=== PATIENT | female | born 1940 | race Caucasian/White ===

== ENCOUNTER 2016-12-10 05:53 | Inpatient (IN) | payer OTHER, BC ==
[2016-12-10] MEDS ORDERED: TRANEXAMIC ACID 1000 MG/10 ML VIAL IVPUSH ONE (06:34)
[2016-12-10] MEDS ORDERED: CEFAZOLIN 1 GM/D5W 50 ML IVPB ONE (06:34)
[2016-12-10] MEDS ORDERED: ROPIVICAINE 0.2%/MORPH PF/KETOROLAC - 51ML DISP.SYRINGE IA ONE (06:34)
[2016-12-10] MEDS: oxyCODONE HCL 10 MG SUSTAINED ACTING TABLET PO ONE ×2 (06:55→16:06)
[2016-12-10] MEDS: CELECOXIB 200 MG CAPSULE PO ONE ×2 (06:55→16:03)
[2016-12-10] MEDS: PANTOPRAZOLE 40 MG TABLET (FP) PO ONE ×2 (06:55→16:07)
[2016-12-10] MEDS: GABAPENTIN 300 MG CAPSULE (FP) PO ONE ×2 (06:55→16:06)
[2016-12-10] MEDS ORDERED: ePHEDrine SULFATE 50 MG/1 ML AMPULE ONE (07:00)
[2016-12-10] MEDS ORDERED: PROPOFOL 20 ML ONE ×5 (07:01)
[2016-12-10] MEDS ORDERED: SUCCINYLCHOLINE CHLORIDE 200 MG/10 ML VIAL ONE (07:01)
[2016-12-10] MEDS ORDERED: MIDAZOLAM HCL 2 MG/2 ML SINGLE DOSE VIAL ONE ×2 (07:01→07:41)
[2016-12-10] MEDS ORDERED: LIDOCAINE 1% P/F 10 MG/ML VIAL ONE (07:41)
[2016-12-10] MEDS ORDERED: DEXAMETHASONE SOD PHOSPHATE/PF 10 MG/ML SDV ONE (07:41)
[2016-12-10] MEDS ORDERED: BUPIVACAINE HCL/PF (5 MG/ML) 30 ML VIAL IJ ONE (07:42)
[2016-12-10] MEDS ORDERED: BUPIVACAINE HCL/PF 0.5% (5MG/ML) 10 ML VIAL ONE (08:27)
[2016-12-10] MEDS ORDERED: ONDANSETRON 4 MG/2 ML VIAL IVPB PRN (12:58)
[2016-12-10] MEDS ORDERED: MAG HYDROX/AL HYDROX/SIMETH 30 ML UNIT-DOSE CUP PO PRN (12:58)
[2016-12-10] MEDS ORDERED: MAGNESIUM HYDROX 2400MG/30ML ORAL SUSPENSION 30 ML CUP PO PRN (12:58)
--- NOTE | 2016-12-10 12:58 | SURG ---
Surgery Bank Worker Note Bank Worker: Priyanka Gambino PA-C Date of Service: 12/10/16 Diagnosis: left hip arthritis Procedure: Left total hip arthroplasty Diego zhu I was present for the entirety of the operative procedure. For further detail, please refer to operative report. Visit type - Case Type Case Type: Scheduled Admission - Emergency Emergency Visit: No - New patient This patient is new to me today: Yes Date on this admission: 12/10/16
[2016-12-10] MEDS ORDERED: ONDANSETRON 4 MG/2 ML VIAL IVPUSH PRN (12:59)
[2016-12-10] MEDS ORDERED: LACTATED RINGERS SOLUTION 1,000 ML IV SCH ×2 (13:00)
[2016-12-10] MEDS ORDERED: oxyCODONE HCL 5 MG TABLET PO PRN (13:00)
--- NOTE | 2016-12-10 13:01 | OP ---
Operative Note - Note: Operative Date: 12/10/16 Pre-Operative Diagnosis: left hip OA Operation: left OTTONIEL Post-Operative Diagnosis: Same as Pre-op Surgeon: Brad Benoit Naval Engineer: Priyanka Gambino Anesthesia: Spinal Estimated Blood Loss (mls): 300
[2016-12-10] MEDS: traMADol HCL 50 MG TABLET PO SCH ×3 (13:30→20:07)
[2016-12-10] MEDS: ACETAMINOPHEN 1000 MG/100 ML VIAL (NON FORMULARY) IVPB ONE ×2 (13:30→16:09)
[2016-12-10] MEDS: KETOROLAC TROMETHAMINE 30 MG/1 ML VIAL IVPUSH SCH ×3 (13:30→20:09)
[2016-12-10 14:09] VITALS: BMI 24.9
[2016-12-10] MEDS ORDERED: ACETAMINOPHEN 325 MG TABLET (FP) PO SCH (17:15)
[2016-12-10] MEDS: CEFAZOLIN 1 GM/D5W 50 ML IVPB SCH (18:27)
[2016-12-10] MEDS ORDERED: DEXAMETHASONE SOD PHOSPHATE 10 MG/1 ML VIAL IVPB ONE (20:00)
[2016-12-10] MEDS: ACETAMINOPHEN 325 MG TABLET (FP) PO SCH (20:08)
[2016-12-10] MEDS: SENNOSIDES/DOCUSATE COMBO (SENNA PLUS) TABLET (UD) PO SCH (21:21)
[2016-12-10] MEDS: ASCORBIC ACID 500 MG TABLET (FP) PO SCH (21:21)
[2016-12-10] MEDS: oxyCODONE HCL 10 MG SUSTAINED ACTING TABLET PO SCH (21:22)
[2016-12-10] MEDS: CELECOXIB 200 MG CAPSULE PO SCH (21:22)
[2016-12-10] MEDS: GABAPENTIN 300 MG CAPSULE (FP) PO SCH (21:22)
[2016-12-11] MEDS: CEFAZOLIN 1 GM/D5W 50 ML IVPB SCH (01:18)
[2016-12-11] MEDS: traMADol HCL 50 MG TABLET PO SCH ×4 (01:56→20:00)
[2016-12-11] MEDS: KETOROLAC TROMETHAMINE 30 MG/1 ML VIAL IVPUSH SCH ×2 (01:56→08:09)
[2016-12-11] MEDS: ACETAMINOPHEN 325 MG TABLET (FP) PO SCH ×4 (01:57→20:00)
[2016-12-11] MEDS: LEVOTHYROXINE NA 75 MCG TABLET (FP) PO SCH (06:41)
[2016-12-11 07:44] LABS: MCH 31.3 pg (25.7-33.7); MCHC 34.1 g/dl (32.0-36.0); MEAN CELL VOLUME 91.8 fl (80-96); MEAN PLT VOLUME 9.3 fl (7.5-11.1); PLATELET COUNT 172 K/MM3 (134-434); RDW 12.4 % (11.6-15.6)
[2016-12-11 07:59] LABS: ANION GAP 7 (8-16); CALCIUM 8.2 mg/dl (8.4-10.2); CO2 24 mmol/L (22-28); CREATININE 0.7 mg/dl (0.6-1.3); GLUCOSE,RANDOM 161 mg/dl (74-106)
[2016-12-11] MEDS: ASPIRIN 325 MG TABLET PO SCH (08:09)
[2016-12-11] MEDS: oxyCODONE HCL 5 MG TABLET PO PRN ×2 (09:16→14:05)
[2016-12-11] MEDS: EXEMESTANE 25 MG TABLET PO SCH (09:41)
[2016-12-11] MEDS: GABAPENTIN 300 MG CAPSULE (FP) PO SCH ×2 (09:42→21:34)
[2016-12-11] MEDS: CELECOXIB 200 MG CAPSULE PO SCH ×2 (09:42→21:34)
[2016-12-11] MEDS: oxyCODONE HCL 10 MG SUSTAINED ACTING TABLET PO SCH ×2 (09:43→21:34)
[2016-12-11] MEDS: ASCORBIC ACID 500 MG TABLET (FP) PO SCH ×2 (09:43→21:34)
[2016-12-11] MEDS: SENNOSIDES/DOCUSATE COMBO (SENNA PLUS) TABLET (UD) PO SCH ×2 (09:43→21:34)
[2016-12-11] MEDS: PANTOPRAZOLE 40 MG TABLET (FP) PO SCH (09:43)
[2016-12-11] MEDS ORDERED: EXEMESTANE 25 MG PO SCH (10:00)
[2016-12-11] MEDS: MULTIVITAMINS (DAILY MVI) TABLET (FP) PO SCH (10:05)
--- NOTE | 2016-12-11 18:07 | PN ---
Progress Note (short form) - Note Progress Note: Pt seen and examined. Doing well. AVSS Selected Entries 12/10/16 12/11/16 22:00 05:59 Temperature 98.3 F Pulse Rate 64 Respiratory 18 Rate Blood Pressure 113/47 O2 Sat by Pulse 98 Oximetry (%) Oxygen Delivery Room Air Method Laboratory Tests 12/11/16 12/11/16 07:23 07:23 WBC 12.0 H Hgb 11.3 Hct 33.2 Plt Count 172 Sodium 132 L Potassium 3.9 Chloride 101 Carbon Dioxide 24 Anion Gap 7 L BUN 21 H Creatinine 0.7 Random Glucose 161 H Calcium 8.2 L Gen: NAD LLE: c/d/i, NVID A/P 76yo female POD#1 s/p L OTTONIEL 1. PT/OOB 2. Plan for d/c home tomorrow.
[2016-12-12] MEDS: traMADol HCL 50 MG TABLET PO SCH ×3 (01:59→13:46)
[2016-12-12] MEDS: ACETAMINOPHEN 325 MG TABLET (FP) PO SCH ×3 (02:00→13:46)
[2016-12-12] MEDS: LEVOTHYROXINE NA 75 MCG TABLET (FP) PO SCH (06:32)
[2016-12-12 08:31] LABS: MCH 31.4 pg (25.7-33.7); MEAN CELL VOLUME 92.2 fl (80-96); MEAN PLT VOLUME 9.4 fl (7.5-11.1); PLATELET COUNT 151 K/MM3 (134-434); RDW 12.4 % (11.6-15.6); WHITE BLOOD COUNT 11.2 K/mm3 (4.0-10.8)
[2016-12-12] MEDS: ASPIRIN 325 MG TABLET PO SCH (08:35)
[2016-12-12 09:02] LABS: ANION GAP 5 (8-16); CALCIUM 8.2 mg/dl (8.4-10.2); CO2 26 mmol/L (22-28); CREATININE 0.7 mg/dl (0.6-1.3); GLUCOSE,RANDOM 88 mg/dl (74-106)
[2016-12-12] MEDS ORDERED: PT OWN MED DRAWER 7, Y5N ONE (09:16)
[2016-12-12] MEDS: SENNOSIDES/DOCUSATE COMBO (SENNA PLUS) TABLET (UD) PO SCH (09:22)
[2016-12-12] MEDS: MULTIVITAMINS (DAILY MVI) TABLET (FP) PO SCH (09:22)
[2016-12-12] MEDS: ASCORBIC ACID 500 MG TABLET (FP) PO SCH (09:22)
[2016-12-12] MEDS: oxyCODONE HCL 10 MG SUSTAINED ACTING TABLET PO SCH (09:23)
[2016-12-12] MEDS: GABAPENTIN 300 MG CAPSULE (FP) PO SCH (09:23)
[2016-12-12] MEDS: CELECOXIB 200 MG CAPSULE PO SCH (09:23)
[2016-12-12] MEDS: PANTOPRAZOLE 40 MG TABLET (FP) PO SCH (09:24)
[2016-12-12] MEDS: EXEMESTANE 25 MG TABLET PO SCH (09:24)
[2016-12-12] MEDS ORDERED: ONDANSETRON *ODT* 4 MG TABLET SL PRN (10:48)
[2016-12-12 14:17] VITALS: BP 131/50; PULSE 72; TEMP 97.6
--- NOTE | 2016-12-18 10:36 | SPEC ---
DATE OF OPERATION: 12/10/2016 PREOPERATIVE DIAGNOSIS: Left hip osteoarthritis. POSTOPERATIVE DIAGNOSIS: Left hip osteoarthritis. PROCEDURE: Left total hip replacement with MAKOplasty robotic navigation. ATTENDING DOCTOR: Kandace Simon MD TACO MAKER: SANDOVAL Neal ANESTHESIA: Spinal plus sedation. ESTIMATED BLOOD LOSS: 300 mL. COMPLICATIONS: None. SPECIMENS: Resected bone was sent for pathological analysis. DISPOSITION: The patient was transferred to the PACU in stable condition. INDICATIONS: This is a 76-year-old female who presented to the office complaining of severe left hip pain. She was seen and examined by Dr. Simon and diagnosed with left hip osteoarthritis. She was initially treated nonoperatively with medications and physical therapy, but continued to have left hip pain and ambulatory dysfunction. She was subsequently indicated for left total hip replacement with MAKOplasty robotic navigation. The risks, benefits, and alternatives to the procedure were explained to the patient in great detail, and she elected to proceed with the surgery. DESCRIPTION OF PROCEDURE: On the day of surgery, the patient was taken to the operating room and placed on the OR table. Spinal anesthesia was administered by the anesthesiologist. The patient was then positioned in the lateral decubitus position on the table and all bony prominences were padded. An axillary roll was placed. The operative hip was then prepped and draped in the usual sterile fashion and intravenous antibiotics were given for infection prophylaxis. A surgical time-out was then performed with the team, and the patients identity, procedure, side, availability of implants, and the administration of antibiotics was confirmed. An approximately 15cm longitudinal incision was made through the skin centered on the greater trochanter of the hip. This dissection was carried down through the subcutaneous tissues to the deep fascia. This fascia was then incised and a cobra was placed around the inferior femoral neck. Electrocautery was used to reflect the anterior 40% of the gluteus medius and minimus starting at the musculotendinous junction and leaving a cuff for closure. This was reflected to reveal the capsule of the hip joint. An anterior capsulectomy was performed and the femoral head and neck was visualized. Grade 4 changes were noted diffusely throughout the joint. At this point, three small stab incisions were made superior to the main incision along the iliac crest. Three self-drilling Luke pins were then placed and the Diego pelvic array was attached. Reference points on the limb were then entered into the robotic device and the limb length deficiency, offset, and femoral neck resection level were then calculated by the software. The hip was then dislocated with traction and external rotation, an oscillating saw was used to make the femoral neck cut at the level previously templated, and the femoral head was removed. Attention was then turned to the acetabulum. Retractors were then placed around the acetabulum and the labrum was removed. An acetabular checkpoint pin and the [employer] software was used to register the contours of the acetabulum. The acetabulum was then reamed in a single stage to the preoperatively templated size using the [employer] robotic arm. The appropriately sized cup was then impacted and had solid fixation as well as the preset inclination and version of 40 and 20 degrees, respectively. A polyethylene liner was then placed in the cup. Attention was then turned back to the femur, which was externally rotated for improved visualization. A femoral neck elevator was used to present the femoral neck cut, a box osteotome was used to enter the femoral canal, and a canal finder was used to go down the femoral shaft. The Diego broaches were used sequentially until the optimal scratch fit was achieved. This correlated to the preoperatively templated size. From here, several different offset head and neck configurations were tested until excellent stability and length was obtained. These measurements were quantified using the [employer] software. All trial components were then removed, the femur was copiously irrigated, and the final components were placed. Leg length and stability were checked again and found to be excellent. Irrigation was performed again. Wound closure was started by repairing the abductor muscles with a No. 2 Fiberwire stitch in a Westerly configuration passed through bone tunnels in the greater trochanter and tied over a bony bridge. This repair was then reinforced with a 0 VLoc 180 barbed suture. Next, No. 1 Polysorb and 0 VLoc 180 was used to close the fascia. The deep subcutaneous tissue was closed with No. 1 Polysorb sutures, and 2-0 Polysorb was used for the superficial subcutaneous tissue. The skin was closed using both 3-0 VLoc 90 suture in a running subcuticular fashion and SwiftSet skin adhesive. The Diego array and pins were removed from the iliac crest and the stab incision sites were irrigated and closed with 4-0 Polysorb sutures and SwiftSet skin adhesive. Once this was completed a sterile dressing was applied. The patient was then awakened and taken to the PACU in stable condition. ADDENDUM: After final components were placed, a 3-minute dilute Betadine lavage was performed according to the LEEDEY protocol. Following this, the wound was again thoroughly irrigated with normal saline via pulsatile lavage, and wound closure was begun. KANDACE SIMON M.D. [id number]
--- NOTE | 2016-12-18 16:44 | PATH ---
Surgical Pathology Report Patient Name: ALVIN HERNANDEZ Med. Rec. #: [id number] /Age/Gender: 1940 (Age: 76) / F Account: [id number] Location: [facility] MED-SURG Taken: 12/10/2016 Received: 12/10/2016 Reported: 12/18/2016 Physicians: Brad Benoit M.D. Specimen(s) Received A: LEFT FEMORAL HEAD B: LEFT HIP TISSUE Clinical History Left hip osteoarthritis Final Diagnosis A. FEMORAL HEAD, LEFT, TOTAL HIP REPLACEMENT: DEGENERATIVE JOINT DISEASE. B. HIP TISSUE, LEFT, EXCISION: PIGMENTED VILLONODULAR SYNOVITIS (PVNS). Electronically Signed Priyanka Chen M.D. Gross Description A. Received in formalin, labeled "left femoral head," is a 4.5 x 4.5 x 4.0 cm. femoral head with a 1.3 cm length portion of femoral neck attached. The margin of resection is smooth. No areas of eburnation are identified. The articular surface is barth-yellow and focally granular. The underlying trabecular bone is yellow and hard. A major account representative section is submitted in one cassette, following decalcification. B. Received in formalin labeled "left hip tissue," is a 5.7 x 4.8 x 1.3 cm aggregate of barth focally brown soft tissue fragments. Sectioning reveals homogeneous barth, firm tissue. Nuclear Power Reactor Operator sections are submitted in three cassettes. /12/11/2016 saudi12/11/2016
== END 2016-12-12 15:40 | disposition home health service (06) | DRG 470 ==
LOC: FM/S 05:53
PROVIDERS: ADMIT Student in an Organized Health Care Education/Training Program; ATTEND Student in an Organized Health Care Education/Training Program
PROC: 8E0W0CZ Robotic Assisted Procedure of Trunk Region, Open Approach (ICD-10-PCS; 2016-12-10)
PROC: 0SRB0JZ Replacement of Left Hip Joint with Synthetic Substitute, Open Approach (ICD-10-PCS; principal; 2016-12-10 09:21)
DX: M16.12 Unilateral primary osteoarthritis, left hip (principal)
CPT/HCPCS: 36415; 73502-TC-LT; 80048; 85027; 88305-TC; 88311-TC; 94010; 94760; 97116-GP; 97162-GP